=== PATIENT | male | born 1980 | race Caucasian/White ===

== ENCOUNTER 2021-12-04 00:09 | Emergency (ER) | payer OTHER, SELFPAY ==
[2021-12-04 00:13] VITALS: BP 108/60; PULSE 97; RESP 18; TEMP 37.3; O2SAT 99; BMI 24.4
--- NOTE | 2021-12-04 00:21 | ECG_ITS ---
[facility] Test Date: 2021-12-04 Pat Name: Diaz Segundo Department: Room: Gender: Male Emergency Department: : 1980 Requested By: Lizandro Munson Order Number: [id number] Ragsdale MD: Mikel Mccabe M.D. Measurements Intervals [place] Rate: 96 P: 28 PA: 178 QRS: 81 QRSD: 98 T: 71 QT: 359 QTc: 456 Interpretive Statements SINUS RHYTHM INCOMPLETE RIGHT BUNDLE BRANCH BLOCK [90+ ms QRS DURATION, TERMINAL R IN V1/V2, 40+ ms S IN I/aVL/V4/V5/V6] No previous ECG available for comparison Electronically Signed On 12-04-2021 8:08:15 CDT by Mikel Mccabe M.D. [id number]
--- NOTE | 2021-12-04 00:21 | XRR_ITS ---
PROCEDURE INFORMATION: Exam: XR Chest Exam date and time: 12/04/2021 12:45 AM Age: 41 years old Clinical indication: Other: Syncope; Additional info: Syncopal episode TECHNIQUE: Imaging protocol: Radiologic exam of the chest. Views: 1 view. COMPARISON: CT abdomen pelvis w con* [id number] 09/29/2018 9:47 AM FINDINGS: Lungs: Lungs are clear. Pleural spaces: There is no pleural effusion or pneumothorax. Heart/Mediastinum: Cardiomediastinal contours are unremarkable. Bones/joints: Bones are unremarkable. XR/XR chest 1V portable [id number] IMPRESSION: No acute findings.
[2021-12-04] MEDS: sodium chloride 0.9% 1,000 ML 999 ML IV (00:34)
[2021-12-04 00:38] LABS: Basophils % 0.3 %; Eosinophils % 0.1 %; Hematocrit 41.6 % (42.0-52.0); Lymphocytes # 0.7 10^3/uL (0.8-4.8); Lymphocytes % 5.1 %; Mean Corpuscular HGB Conc 33.7 g/dL (30.0-36.0); Mean Corpuscular Hemoglobin 30.4 pg (28.0-34.0); Mean Corpuscular Volume 90.4 fl (80-94); Mean Platelet Volume 8.8 fL (7.4-10.4); Monocytes # 1.2 10^3/uL (0.2-0.9); Monocytes % 8.6 %; Neutrophils # 11.63 10^3/uL (1.8-7.7); Neutrophils % 85.3 %; Nucleated Red Blood Cells % 0 %; Platelet Count 192 10^3/cmm (130-400); Red Cell Distribution Width 11.8 % (12.1-15.1); White Blood Count 13.6 10^3/uL (4.0-10.0)
--- NOTE | 2021-12-04 00:44 | W.ED.SYNCOPE ---
Documented by User: IVETTE Miller 12/04/21 14:13 HPI - Syncope General: Chief Complaint: Syncope Stated Complaint: Passed Out Time Seen by Provider: 12/04/21 00:20 History of Present Illness: Patient is a 41-year-old male that comes to the ED with upper respiratory symptoms and syncopal episode. Patient's upper respiratory symptoms of fever, chills, body aches and sore throat started this morning when he woke up. His symptoms have continued to progress. He says this is the worst sore throat he has ever had. It hurts for him to swallow. He says that it feels like there is something stuck in his throat. Denies getting any food stuck in throat or choking. Denies any known sick contacts. He is taken Tylenol and Motrin today to help with fever. His last dose of Tylenol was around 5 PM today. Approximately 1 hour ago patient had a syncopal episode. He was laying in bed and then got up and sat at edge of bed. He then says he passed out and woke up on the floor. Denies any headache, neck pain, chest pain or shortness of breath. He has not had any abdominal pain, nausea/vomiting, bladder or bowel symptoms. Associated symptoms: Reports fever(s); Deny abdominal pain, chest pain, headache(s) or nausea Review of Systems Const: Reports: fever(s), chills, body aches, fatigue and malaise Eyes: Denies: change in vision or eye discomfort ENMT: Reports: throat pain and odynophagia; Denies: nasal discharge or nasal congestion Card: Reports: syncope; Denies: chest pain, palpitations, edema, swelling of feet/ankles, dyspnea on exertion or orthopnea Resp: Denies: dyspnea, productive cough or non-productive cough GI: Denies: abdominal pain, nausea, vomiting, diarrhea, constipation or hematochezia : Denies: flank pain, difficulty urinating, dysuria or hematuria Musc: Denies: neck pain, back pain or extremity swelling Skin/Breast: Denies: rash or new lesions Neuro: Denies: headache(s), numbness in extremities or weakness in extremities PFS ED PFSH: Medical History No pertinent family history Surgical History No pertinent past surgical history Physical Exam Narrative: EXAM NARRATIVE: Patient appears in some discomfort and is having some trouble dealing with his oral secretions and is spitting them out. Const: COMMON NORMALS: patient oriented x3 and alert GENERAL APPEARANCE: cooperative HENMT: COMMON NORMALS: normocephalic HEAD & SCALP: normocephalic MOUTH: Normal oral and palatal mucosa present THROAT: uvula midline and posterior oropharynx abnormal edema and erythema Eye: COMMON NORMALS: Equal, round and reactive pupils present and conjunctivae normal CONJUNCTIVA: Yes conjunctivae normal PUPIL: Yes Equal, round and reactive pupils present Neck/C-Spine: COMMON NORMALS: supple GENERAL: Yes normal visual inspection Lymph: LYMPHATIC: lymphadenopathy bilateral anterior cervical multiple, soft and tender 1 cm Resp: COMMON NORMALS: normal respiratory effort, No retractions, No use of accessory muscles and clear to auscultation bilaterally AUSCULTATION: clear to auscultation bilaterally Cardio: COMMON NORMALS: regular rate, regular rhythm, S1 normal heart sound present, S2 normal heart sound present, No gallops present (Cardio), No clicks present (Cardio), No murmurs present (Cardio) and Peripheral pulses 2+ throughout RATE: regular rate RHYTHM: regular rhythm HEART SOUNDS: S1 normal heart sound present and S2 normal heart sound present PERIPHERAL PULSES: Peripheral pulses 2+ throughout GI: COMMON NORMALS: Normal to inspection, nondistended, normoactive bowel sounds present, Soft to palpation, non-tender and no masses PALPATION: Yes Soft to palpation : COMMON NORMALS: Yes no CVA tenderness BLADDER/KIDNEY EXAM: Yes no CVA tenderness Back/Pelvis: COMMON NORMALS: no CVA tenderness Extremity: COMMON NORMALS: normal to inspection Neuro: COMMON NORMALS: patient oriented x3 and moves all extremities SENSORIUM/ORIENTATION: Yes alert Skin: GENERAL SKIN EXAM: dry skin Course Vital Signs: Vital signs: Vital Signs Temperature 97.8 F 12/04/21 05:45 Pulse Rate 83 12/04/21 07:45 Respiratory Rate 16 12/04/21 07:45 Blood Pressure 101/58 12/04/21 07:45 Pulse Oximetry 95 12/04/21 07:45 MDM - Syncope Lab Data I reviewed the patient's lab results. : 12/04/21 00:27 12/04/21 00:27 Radiology Impressions Chest X-Ray 12/04/21 00:21 IMPRESSION: No acute findings. Head CT 12/04/21 00:45 IMPRESSION: No acute intracranial abnormality. Neck CT 12/04/21 02:24 IMPRESSION: Probable polyp on the posterior pharyngeal wall at about the level of the vocal folds causing mild airway narrowing and soft tissue thickening up the left parapharyngeal soft tissues to the soft palate. ADDENDUM: 12/04/21 0500 THIS REPORT CONTAINS FINDINGS THAT MAY BE CRITICAL TO PATIENT CARE. The findings were verbally communicated via telephone conference at 4:57 AM CDT on 12/04/[address] Fabrice Em. The findings were acknowledged and understood. Laboratory Results WBC 13.6 10^3/uL (4.0-10.0) H 12/04/21 00:27 RBC 4.60 10^6/uL (4.1-5.3) 12/04/21 00:27 Hgb 14.0 g/dL (11.7-16.6) 12/04/21 00:27 Hct 41.6 % (42.0-52.0) L 12/04/21 00:27 MCV 90.4 fl (80-94) 12/04/21 00:27 MCH 30.4 pg (28.0-34.0) 12/04/21 00: MCHC 33.7 g/dL (30.0-36.0) 12/04/21 00: RDW 11.8 % (12.1-15.1) L 12/04/21 00:27 Plt Count 192 10^3/cmm (130-400) 12/04/21 00:27 MPV 8.8 fL (7.4-10.4) 12/04/21 00:27 Neut % (Auto) 85.3 % 12/04/21 00:27 Lymph % (Auto) 5.1 % 12/04/21 00:27 Tucker % (Auto) 8.6 % 12/04/21 00:27 Eos % (Auto) 0.1 % 12/04/21 00:27 Baso % (Auto) 0.3 % 12/04/21 00:27 Neut # (Auto) 11.63 10^3/uL (1.8-7.7) H 12/04/21 00:27 Lymph # (Auto) 0.7 10^3/uL (0.8-4.8) L 12/04/21 00: Tucker # (Auto) 1.2 10^3/uL (0.2-0.9) H 12/04/21 00: Eos # (Auto) 0.0 10^3/uL (0.0-0.8) 12/04/21 00: Baso # (Auto) 0.0 10^3/uL (0.0-0.1) 12/04/21 00: Nucleated RBC % (auto) 0 % 12/04/21 Nucleated RBCs # 0.0 /100WBC 12/04/21: Sodium 142 mmol/L (136-145) 12/04/21 00: Potassium 3.5 mmol/L (3.5-5.1) 12/04/21 00: Chloride 106 mmol/L (98-107) 12/04/21: Carbon Dioxide 24 mmol/L (22-29) 12/04/21 00: Anion Gap 15.5 (5-19) 12/04/21 00: BUN 9 mg/dL (6-20) 12/04/21: Creatinine 0.8 mg/dL (0.7-1.2) 12/04/21 00: GFR Calculation 106.0 mL/min (90-130) 12/04/21 00: Glucose 134 mg/dL (65-115) H 12/04/21 00: Calculated Osmolality 295 mOsm/kg (285-295) 12/04/21: Calcium 9.0 mg/dL (8.5-10.5) 12/04/21 00: Total Bilirubin 1.8 mg/dL (0.15-1.2) H 12/04/21 00: AST 14 U/L (0-40) 12/04/21: ALT 14 U/L (0-41) 12/04/21: Alkaline Phosphatase 43 IU/L (40-130) 12/04/21 00: Troponin T Baseline 6 ng/L (0-15) 12/04/21: Troponin T 120 Minute 6.74 ng/L (0-15) 12/04/21 02:20 Delta Troponin T 0.74 ABS# (0-10) 12/04/21 02:20 Total Protein 6.7 g/dL (6.6-8.7) 12/04/21 00:27 Albumin 4.5 g/dL (3.5-5.2) 12/04/21 00:27 Globulin 2.2 g/dL (1.3-4.6) 12/04/21 00:27 Coronavirus 229E (PCR) Not detected (NOT DETECT) 12/04/21 00:51 Monoscreen Negative (Negative) 12/04/21 00:27 SARS-CoV-2 (PCR) Not detected (NOT DETECT) 12/04/21 00:51 Group A Strep Rapid Negative (Negative) 12/04/21 00:51 EKG Data EKG 1: EKG interpretation date: 12/04/21 Interpretation: Sinus rhythm, no ST segment elevation or depression seen. 96 bpm. Discharge Plan Discharge Patient Disposition: Home Clinical Impression: Pharyngeal mass Condition: Stable Prescriptions: New prednisone 20 mg tablet 20 mg PO TID Qty: 15 0RF Rx Instructions: 1 p.o. 3 times daily x3 days, 1 p.o. twice daily x2 days, 1 p.o. daily x2 days clindamycin HCl 300 mg capsule 300 mg PO QID 10 Days Qty: 40 0RF Discharge Orders: Discharge ED (Routine); Ordered 12/04/21 Ordered By: Keven Martinez Referrals: Yassine Barnes MD [Physician] - Patient Instructions: Opioid Safety Activity Restrictions/Additional Instructions: Case management make arrangements for you to see Dr. Barnes on Saturday, December 07. Sign Out Sign Out Data: Patient Sign Out occurred on 12/04/21 at 07:27. Patient's care was discussed, and care was transferred from to Keven Martinez DO. Coding Level of Care Code ED Wireline Supervisor for Chg Fwd Exam Comprehensive Documented by User: Fabricenayana Em DO 12/04/21 06:08 HPI - Syncope General: Chief Complaint: Syncope Stated Complaint: Passed Out Time Seen by Provider: 12/04/21 00:20 [facility] ED PFSH: Medical History No pertinent family history Surgical History No pertinent past surgical history Course Vital Signs: Vital signs: Vital Signs Temperature 97.8 F 12/04/21 05:45 Pulse Rate 83 12/04/21 07:45 Respiratory Rate 16 12/04/21 07:45 Blood Pressure 101/58 12/04/21 07:45 Pulse Oximetry 95 12/04/21 07:45 MDM - Syncope Medical Decision Making This patient was originally seen by Mr. Arpit PA-C.? I agree with his history, evaluation, and treatment. He originally came in because of a syncopal episode. He has recovered from this. His second complaint, though, was a feeling of a foreign object in his throat. He is having some pain, and mild difficulty swallowing. No shortness of breath. He is handling his own secretions fine at this point. He has not had this sensation before. He denied any choking episodes recently. He does have some upper respiratory symptoms. His white blood cell count is 13.6. His BMP is normal. Swabs for strep, COVID-19, and mono test were negative. CT of the head shows no acute intracranial abnormality related to syncope. Chest x-ray is normal. Troponin is 6.7 at baseline with a 0.7 delta. His EKG is nonacute. CT of the neck with contrast is performed, and shows a probable polyp on the posterior pharyngeal wall at about the level of the vocal cords causing some mild airway narrowing. I have reexamined the patient. He still having trouble swallowing. He was given IV Decadron which should begin to help. He will be covered with clindamycin, as he has a leukocytosis and a low-grade temperature. We have ENT available at 7 AM this morning. He has agreed to be held here, until we can consult with them for further evaluation. He is not stridulous at this point. There is no sign clinically of impending airway obstruction or decompensation. His symptoms are not worsening. Lab Data : 12/04/21 00:27 12/04/21 00:27 Radiology Impressions Chest X-Ray 12/04/21 00:21 IMPRESSION: No acute findings. Head CT 12/04/21 00:45 IMPRESSION: No acute intracranial abnormality. Neck CT 12/04/21 02:24 IMPRESSION: Probable polyp on the posterior pharyngeal wall at about the level of the vocal folds causing mild airway narrowing and soft tissue thickening up the left parapharyngeal soft tissues to the soft palate. ADDENDUM: 12/04/21 0500 THIS REPORT CONTAINS FINDINGS THAT MAY BE CRITICAL TO PATIENT CARE. The findings were verbally communicated via telephone conference at 4:57 AM CDT on 12/04/[address] Fabrice Em. The findings were acknowledged and understood. Laboratory Results WBC 13.6 10^3/uL (4.0-10.0) H 12/04/21 00:27 RBC 4.60 10^6/uL (4.1-5.3) 12/04/21 00:27 Hgb 14.0 g/dL (11.7-16.6) 12/04/21 00:27 Hct 41.6 % (42.0-52.0) L 12/04/21 00:27 MCV 90.4 fl (80-94) 12/04/21 00:27 MCH 30.4 pg (28.0-34.0) 12/04/21 00: MCHC 33.7 g/dL (30.0-36.0) 12/04/21 00: RDW 11.8 % (12.1-15.1) L 12/04/21 00:27 Plt Count 192 10^3/cmm (130-400) 12/04/21 00:27 MPV 8.8 fL (7.4-10.4) 12/04/21 00:27 Neut % (Auto) 85.3 % 12/04/21 00:27 Lymph % (Auto) 5.1 % 12/04/21 00:27 Tucker % (Auto) 8.6 % 12/04/21 00:27 Eos % (Auto) 0.1 % 12/04/21 00:27 Baso % (Auto) 0.3 % 12/04/21 00:27 Neut # (Auto) 11.63 10^3/uL (1.8-7.7) H 12/04/21 00:27 Lymph # (Auto) 0.7 10^3/uL (0.8-4.8) L 12/04/21 00:27 Tucker # (Auto) 1.2 10^3/uL (0.2-0.9) H 12/04/21 00:27 Eos # (Auto) 0.0 10^3/uL (0.0-0.8) 12/04/21 00: Baso # (Auto) 0.0 10^3/uL (0.0-0.1) 12/04/21 00: Nucleated RBC % (auto) 0 % 12/04/21 00: Nucleated RBCs # 0.0 /100WBC 12/04/21 00: Sodium 142 mmol/L (136-145) 12/04/21 00: Potassium 3.5 mmol/L (3.5-5.1) 12/04/21 00: Chloride 106 mmol/L (98-107) 12/04/21 00: Carbon Dioxide 24 mmol/L (22-29) 12/04/21 00: Anion Gap 15.5 (5-19) 12/04/21 00: BUN 9 mg/dL (6-20) 12/04/21 00: Creatinine 0.8 mg/dL (0.7-1.2) 12/04/21 00: GFR Calculation 106.0 mL/min (90-130) 12/04/21 00: Glucose 134 mg/dL (65-115) H 12/04/21 00: Calculated Osmolality 295 mOsm/kg (285-295) 12/04/21 00: Calcium 9.0 mg/dL (8.5-10.5) 12/04/21 00: Total Bilirubin 1.8 mg/dL (0.15-1.2) H 12/04/21 00: AST 14 U/L (0-40) 12/04/21 00: ALT 14 U/L (0-41) 12/04/21 00: Alkaline Phosphatase 43 IU/L (40-130) 12/04/21 00: Troponin T Baseline 6 ng/L (0-15) 12/04/21 00:27 Troponin T 120 Minute 6.74 ng/L (0-15) 12/04/21 02:20 Delta Troponin T 0.74 ABS# (0-10) 12/04/21 02:20 Total Protein 6.7 g/dL (6.6-8.7) 12/04/21 00:27 Albumin 4.5 g/dL (3.5-5.2) 12/04/21 00:27 Globulin 2.2 g/dL (1.3-4.6) 12/04/21 00:27 Coronavirus 229E (PCR) Not detected (NOT DETECT) 12/04/21 00:51 Monoscreen Negative (Negative) 12/04/21 00:27 SARS-CoV-2 (PCR) Not detected (NOT DETECT) 12/04/21 00:51 Group A Strep Rapid Negative (Negative) 12/04/21 00:51 Discharge Plan Discharge Patient Disposition: Home Clinical Impression: Pharyngeal mass Condition: Stable Prescriptions: New prednisone 20 mg tablet 20 mg PO TID Qty: 15 0RF Rx Instructions: 1 p.o. 3 times daily x3 days, 1 p.o. twice daily x2 days, 1 p.o. daily x2 days clindamycin HCl 300 mg capsule 300 mg PO QID 10 Days Qty: 40 0RF Discharge Orders: Discharge ED (Routine); Ordered 12/04/21 Ordered By: Keven Martinez Referrals: Yassine Barnes MD [Physician] - Patient Instructions: Opioid Safety Activity Restrictions/Additional Instructions: Case management make arrangements for you to see Dr. Barnes on Saturday, December 07. Sign Out Sign Out Data: Patient Sign Out occurred on 12/04/21 at 07:27. Patient's care was discussed, and care was transferred from to Keven Martinez DO. Coding Level of Care Code ED Wireline Supervisor for Chg Fwd Exam Comprehensive Documented by User: Keven Martinez DO 12/04/21 07:41 HPI - Syncope General: Chief Complaint: Syncope Stated Complaint: Passed Out Time Seen by Provider: 12/04/21 00:20 [facility] ED PFSH: Medical History No pertinent family history Surgical History No pertinent past surgical history Course Vital Signs: Vital signs: Vital Signs Temperature 97.8 F 12/04/21 05:45 Pulse Rate 83 12/04/21 07:45 Respiratory Rate 16 12/04/21 07:45 Blood Pressure 101/58 12/04/21 07:45 Pulse Oximetry 95 12/04/21 07:45 MDM - Syncope Medical Decision Making This patient was originally seen by Mr. Arpit PA-C.? I agree with his history, evaluation, and treatment. He originally came in because of a syncopal episode. He has recovered from this. His second complaint, though, was a feeling of a foreign object in his throat. He is having some pain, and mild difficulty swallowing. No shortness of breath. He is handling his own secretions fine at this point. He has not had this sensation before. He denied any choking episodes recently. He does have some upper respiratory symptoms. His white blood cell count is 13.6. His BMP is normal. Swabs for strep, COVID-19, and mono test were negative. CT of the head shows no acute intracranial abnormality related to syncope. Chest x-ray is normal. Troponin is 6.7 at baseline with a 0.7 delta. His EKG is nonacute. CT of the neck with contrast is performed, and shows a probable polyp on the posterior pharyngeal wall at about the level of the vocal cords causing some mild airway narrowing. I have reexamined the patient. He still having trouble swallowing. He was given IV Decadron which should begin to help. He will be covered with clindamycin, as he has a leukocytosis and a low-grade temperature. We have ENT available at 7 AM this morning. He has agreed to be held here, until we can consult with them for further evaluation. He is not stridulous at this point. There is no sign clinically of impending airway obstruction or decompensation. His symptoms are not worsening. Care assumed at change of shift. Patient remained stable as per Dr. Em's disc scription. I reviewed the CT with Dr. Munson. He will see the patient Saturday morning we will discharge him home on continued oral clindamycin and oral steroid taper. He is still able to swallow although he has some discomfort there. Has any worsening problem return. Discussed dietary restrictions stick to mostly liquid diet avoid thick breads meats. Return if has problems. Lab Data : 12/04/21 00:27 12/04/21 00:27 Radiology Impressions Chest X-Ray 12/04/21 00:21 IMPRESSION: No acute findings. Head CT 12/04/21 00:45 IMPRESSION: No acute intracranial abnormality. Neck CT 12/04/21 02:24 IMPRESSION: Probable polyp on the posterior pharyngeal wall at about the level of the vocal folds causing mild airway narrowing and soft tissue thickening up the left parapharyngeal soft tissues to the soft palate. ADDENDUM: 12/04/21 0500 THIS REPORT CONTAINS FINDINGS THAT MAY BE CRITICAL TO PATIENT CARE. The findings were verbally communicated via telephone conference at 4:57 AM CDT on 12/04/[address] Fabrice Em. The findings were acknowledged and understood. Laboratory Results WBC 13.6 10^3/uL (4.0-10.0) H 12/04/21: RBC 4.60 10^6/uL (4.1-5.3) 12/04/21: Hgb 14.0 g/dL (11.7-16.6) 12/04/21: Hct 41.6 % (42.0-52.0) L 12/04/21: MCV 90.4 fl (80-94) 12/04/21: MCH 30.4 pg (28.0-34.0) 12/04/21: MCHC 33.7 g/dL (30.0-36.0) 12/04/21: RDW 11.8 % (12.1-15.1) L 12/04/21: Plt Count 192 10^3/cmm (130-400) 12/04/21: MPV 8.8 fL (7.4-10.4) 12/04/21: Neut % (Auto) 85.3 % 12/04/21 00:27 Lymph % (Auto) 5.1 % 12/04/21 00:27 Tucker % (Auto) 8.6 % 12/04/21 00: Eos % (Auto) 0.1 % 12/04/21 00: Baso % (Auto) 0.3 % 12/04/21 00:27 Neut # (Auto) 11.63 10^3/uL (1.8-7.7) H 12/04/21 00:27 Lymph # (Auto) 0.7 10^3/uL (0.8-4.8) L 12/04/21 00:27 Tucker # (Auto) 1.2 10^3/uL (0.2-0.9) H 12/04/21 00: Eos # (Auto) 0.0 10^3/uL (0.0-0.8) 12/04/21 00: Baso # (Auto) 0.0 10^3/uL (0.0-0.1) 12/04/21 00: Nucleated RBC % (auto) 0 % 12/04/21 00: Nucleated RBCs # 0.0 /100WBC 12/04/21 00: Sodium 142 mmol/L (136-145) 12/04/21 00: Potassium 3.5 mmol/L (3.5-5.1) 12/04/21 00: Chloride 106 mmol/L (98-107) 12/04/21 00: Carbon Dioxide 24 mmol/L (22-29) 12/04/21 00: Anion Gap 15.5 (5-19) 12/04/21 00: BUN 9 mg/dL (6-20) 12/04/21 00: Creatinine 0.8 mg/dL (0.7-1.2) 12/04/21 00: GFR Calculation 106.0 mL/min (90-130) 12/04/21 00: Glucose 134 mg/dL (65-115) H 12/04/21 00: Calculated Osmolality 295 mOsm/kg (285-295) 12/04/21 00: Calcium 9.0 mg/dL (8.5-10.5) 12/04/21 00: Total Bilirubin 1.8 mg/dL (0.15-1.2) H 12/04/21 00:27 AST 14 U/L (0-40) 12/04/21 00:27 ALT 14 U/L (0-41) 12/04/21 00:27 Alkaline Phosphatase 43 IU/L (40-130) 12/04/21 00:27 Troponin T Baseline 6 ng/L (0-15) 12/04/21 00:27 Troponin T 120 Minute 6.74 ng/L (0-15) 12/04/21 02:20 Delta Troponin T 0.74 ABS# (0-10) 12/04/21 02:20 Total Protein 6.7 g/dL (6.6-8.7) 12/04/21 00:27 Albumin 4.5 g/dL (3.5-5.2) 12/04/21 00:27 Globulin 2.2 g/dL (1.3-4.6) 12/04/21 00:27 Coronavirus 229E (PCR) Not detected (NOT DETECT) 12/04/21 00:51 Monoscreen Negative (Negative) 12/04/21 00:27 SARS-CoV-2 (PCR) Not detected (NOT DETECT) 12/04/21 00:51 Group A Strep Rapid Negative (Negative) 12/04/21 00:51 Discharge Plan Discharge Patient Disposition: Home Clinical Impression: Pharyngeal mass Condition: Stable Prescriptions: New prednisone 20 mg tablet 20 mg PO TID Qty: 15 0RF Rx Instructions: 1 p.o. 3 times daily x3 days, 1 p.o. twice daily x2 days, 1 p.o. daily x2 days clindamycin HCl 300 mg capsule 300 mg PO QID 10 Days Qty: 40 0RF Discharge Orders: Discharge ED (Routine); Ordered 12/04/21 Ordered By: Keven Martinez Referrals: Yassine Barnes MD [Physician] - Patient Instructions: Opioid Safety Activity Restrictions/Additional Instructions: Case management make arrangements for you to see Dr. Barnes on December 07. Sign Out Sign Out Data: Patient Sign Out occurred on 12/04/21 at 07:27. Patient's care was discussed, and care was transferred from to Keven Martinez DO. Coding Level of Care Code ED Wireline Supervisor for Chg Fwd Exam Comprehensive
--- NOTE | 2021-12-04 00:45 | CTR_ITS ---
PROCEDURE INFORMATION: Exam: CT Head Without Contrast Exam date and time: 12/04/2021 1:46 AM Age: 41 years old Clinical indication: Fever and syncope and collapse; Additional info: Syncopal episode fell and hit head TECHNIQUE: Imaging protocol: Computed tomography of the head without contrast. Radiation optimization: All CT scans at this facility use at least one of these dose optimization techniques: automated exposure control; mA and/or kV adjustment per patient size (includes targeted exams where dose is matched to clinical indication); or iterative reconstruction. COMPARISON: No relevant prior studies available. RADIATION DOSE METRICS: Total DLP (mGy-cm): 1169.38 FINDINGS: Brain: The brain is unremarkable. There is no mass effect or significant white matter disease. There is no acute intracranial hemorrhage. Cerebral ventricles: There is no significant ventricular dilation. The basal cisterns are unremarkable. Paranasal sinuses: There is mucosal thickening in the ethmoid air cells. No air-fluid levels in the paranasal sinuses. Mastoid air cells: The mastoid air cells are clear. Bones/joints: The calvarium is intact. Soft tissues: The visible extracranial soft tissues are unremarkable. CT/CT head wo con* [id number] IMPRESSION: No acute intracranial abnormality.
[2021-12-04 00:58] LABS: Alanine Aminotransferase 14 U/L (0-41); Albumin Level 4.5 g/dL (3.5-5.2); Alkaline Phosphatase 43 IU/L (40-130); Anion Gap 15.5 (5-19); Aspartate Amino Transferase 14 U/L (0-40); Blood Urea Nitrogen 9 mg/dL (6-20); Carbon Dioxide 24 mmol/L (22-29); Chloride 106 mmol/L (98-107); Globulin 2.2 g/dL (1.3-4.6); Glucose 134 mg/dL (65-115); Osmolality Calculated 295 mOsm/kg (285-295); Potassium 3.5 mmol/L (3.5-5.1); Sodium 142 mmol/L (136-145); Total Bilirubin 1.8 mg/dL (0.15-1.2); Total Protein 6.7 g/dL (6.6-8.7)
[2021-12-04 01:01] LABS: Monoscreen Negative (Negative)
[2021-12-04 01:02] LABS: Rapid Strep A Test Negative (Negative)
[2021-12-04 01:09] LABS: Troponin(5th) Baseline 6 ng/L (0-15)
[2021-12-04 01:38] VITALS: BP 117/64; PULSE 96; RESP 18; O2SAT 98
[2021-12-04] MEDS: ketorolac 30 mg/mL INJ IVP (01:43)
[2021-12-04] MEDS: dexamethasone 10 mg/mL INJ IVP (02:03)
--- NOTE | 2021-12-04 02:24 | CTR_ITS ---
PROCEDURE INFORMATION: Exam: CT Neck With Contrast Exam date and time: 12/04/2021 3:51 AM Age: 41 years old Clinical indication: Painful swallowing; Additional info: Throat pain, trouble swallowing, multiple enlarged lymph nodes on anterior aspect of neck and TECHNIQUE: Imaging protocol: Computed tomography of the neck with contrast. Radiation optimization: All CT scans at this facility use at least one of these dose optimization techniques: automated exposure control; mA and/or kV adjustment per patient size (includes targeted exams where dose is matched to clinical indication); or iterative reconstruction. Contrast material: OMNI 350; Contrast volume: 90 ml; Contrast route: INTRAVENOUS (IV); COMPARISON: CT head wo con* [id number] 12/04/2021 1:46 AM RADIATION DOSE METRICS: Total DLP (mGy-cm): 327.21 FINDINGS: Pharynx: There is moderate swelling along the left parapharyngeal soft tissues from the tonsil to the vocal folds with effacement of the piriform sinus. There is also a 1.6 cm rounded low density mass along the posterior pharyngeal wall at the level of the vocal folds suspicious for a polyp. Larynx: Unremarkable. Epiglottis is normal. Prevertebral and retropharyngeal spaces: Unremarkable. Salivary glands: Normal. Glands are normal in size. Thyroid: Normal. No enlarged or calcified nodules. Lymph nodes: Scattered level 2 and level 3 lymph nodes, measuring up to 2.6 cm on the left. Trachea: There is mild airway narrowing. Lungs: Unremarkable as visualized. Bones/joints: Unremarkable. No acute fracture. Soft tissues: Unremarkable. No significant soft tissue swelling. CT/CT neck w con* [id number] IMPRESSION: Probable polyp on the posterior pharyngeal wall at about the level of the vocal folds causing mild airway narrowing and soft tissue thickening up the left parapharyngeal soft tissues to the soft palate.
[2021-12-04 02:39] LABS: Adenovirus Not Detected (NOT DETECT); Chlamydia Pneumoniae Not Detected (NOT DETECT); Coronavirus 229E,HKU1,NL63,OC4 Not Detected (NOT DETECT); Human Metapneumovirus Not Detected (NOT DETECT); Human Rhinovirus/Enterovirus Not Detected (NOT DETECT); Influenza A Not Detected (NOT DETECT); Influenza A H1 Not Detected (NOT DETECT); Influenza A H1-2009 Not Detected (NOT DETECT); Influenza A H3 Not Detected (NOT DETECT); Influenza B Not Detected (NOT DETECT); Mycoplasma Pneumoniae Not Detected (NOT DETECT); Parainfluenza Virus Type 1 Not Detected (NOT DETECT); Parainfluenza Virus Type 2 Not Detected (NOT DETECT); Parainfluenza Virus Type 3 Not Detected (NOT DETECT); Parainfluenza Virus Type 4 Not Detected (NOT DETECT); Respiratory Syncytial Virus A Not Detected (NOT DETECT); Respiratory Syncytial Virus B Not Detected (NOT DETECT); SARS-COV-2 Not Detected (NOT DETECT)
[2021-12-04 02:45] LABS: Troponin 5 2HR 6.74 ng/L (0-15)
[2021-12-04 03:01] LABS: Troponin 5 2HR Delta 0.74 ABS# (0-10)
[2021-12-04] MEDS: iohexol 300 mg/mL 100 mL Btl IV (04:11)
[2021-12-04] MEDS: lidocaine 2% viscous 15 ML, aluminum-mag hydrox-simethicon 30 ML, sucralfate oral liq 1 GM PO (05:13)
[2021-12-04] MEDS: clindamycin 900 MG/50 ML PREMIX 100 MG IV (05:17)
[2021-12-04 05:45] VITALS: BP 97/60; PULSE 78; RESP 16; TEMP 36.6; O2SAT 95
[2021-12-04 07:20] VITALS: BP 96/55; RESP 18; O2SAT 96
[2021-12-04 07:45] VITALS: BP 101/58; PULSE 83; RESP 16; O2SAT 95
--- NOTE | 2021-12-04 14:41 | DCPLANNER ---
Addendum entered by Mercedes Jones 12/13/21 10:13: Patient had an appointment with Dr. Barnes, ENT - patient did attend appointment. Original Note: publishing manager had message to schedule a follow up appointment for patient with ENT, Dr. Barnes. publishing manager faxed patients information to the office of Dr. Barnes. Clinic will review patients information and will call patient with appointment information.
== END 2021-12-04 07:47 | disposition home or self-care (01) ==
PROVIDERS: Physician Assistant; Emergency Provider Family Medicine
DX: J39.2 Other diseases of pharynx (principal)
CPT/HCPCS: 70450; 70491; 71045; 80053; 84484; 85025; 86308; 87081; 87635; 87880; 93005; 96374; 96375; 99285; J1100; J1885; J3490; J7030; Q9967

== ENCOUNTER 2021-12-17 01:02 | Emergency (ER) | payer OTHER, SELFPAY ==
[2021-12-17 01:02] VITALS: BP 132/70; PULSE 102; RESP 18; TEMP 36.6; O2SAT 94; BMI 24.4
--- NOTE | 2021-12-17 01:56 | XRR_ITS ---
PROCEDURE INFORMATION: Exam: XR Chest Exam date and time: 12/17/2021 2:37 AM Age: 41 years old Clinical indication: Other: Syncope TECHNIQUE: Imaging protocol: Radiologic exam of the chest. Views: 1 view. COMPARISON: CR (CHEST, ) 12/04/2021 12:45 AM FINDINGS: Lungs: There is a background of emphysema mild pulmonary fibrosis. There are increased interstitial opacities present lung bases bilaterally and mild increased peribronchial markings, findings could represent a superimposed bilateral bronchitis and bilateral basilar interstitial pneumonitis. Pleural spaces: Unremarkable. No pleural effusion. No pneumothorax. Heart/Mediastinum: Unremarkable. No cardiomegaly. Bones/joints: Unremarkable. XR/XR chest 1V portable [id number] IMPRESSION: 1. Background of emphysema and pulmonary fibrosis. 2. Mildly increased peribronchial markings and increased interstitial opacities in the lung bases may represent bilateral bronchitis and basilar pneumonitis.
--- NOTE | 2021-12-17 01:56 | CTR_ITS ---
PROCEDURE INFORMATION: Exam: CT Head Without Contrast Exam date and time: 12/17/2021 2:09 AM Age: 41 years old Clinical indication: Syncope and collapse; Additional info: Near syncope TECHNIQUE: Imaging protocol: Computed tomography of the head without contrast. Radiation optimization: All CT scans at this facility use at least one of these dose optimization techniques: automated exposure control; mA and/or kV adjustment per patient size (includes targeted exams where dose is matched to clinical indication); or iterative reconstruction. COMPARISON: CT head wo con* [id number] 12/04/2021 1:46 AM RADIATION DOSE METRICS: Total DLP (mGy-cm): 2858.08 FINDINGS: Brain: There are patchy areas of hypoattenuation seen in the deep white matter of the cerebral hemispheres bilaterally mild deep white matter microvascular disease. Cerebral ventricles: No ventriculomegaly. Paranasal sinuses: Visualized sinuses are unremarkable. No fluid levels. Mastoid air cells: Visualized mastoid air cells are well aerated. Bones/joints: Unremarkable. No acute fracture. Soft tissues: Unremarkable. CT/CT head wo con* [id number] IMPRESSION: There are no acute intracranial findings. Stable head CT compared with 12/04/2021.
--- NOTE | 2021-12-17 01:57 | ECG_ITS ---
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 Measurements Intervals [place] Rate: 96 P: [place]: QRS: 83 QRSD: 101 T: 69 QT: 345 QTc: 436 Interpretive Statements Sinus rhythm ABNORMAL RHYTHM ECG Compared to ECG 12/04/2021 02:03:58 Incomplete right bundle-branch block no longer present Electronically Signed On 12-17-2021 10:36:48 CDT by Bartolome Ellison M.D. [id number]
[2021-12-17 02:18] LABS: Basophils % 0.4 %; Eosinophils # 0.1 10^3/uL (0.0-0.8); Eosinophils % 1.2 %; Hematocrit 39.6 % (42.0-52.0); Hemoglobin 13.1 g/dL (11.7-16.6); Lymphocytes # 3.5 10^3/uL (0.8-4.8); Lymphocytes % 38.9 %; Mean Corpuscular HGB Conc 33.1 g/dL (30.0-36.0); Mean Corpuscular Hemoglobin 30.5 pg (28.0-34.0); Mean Corpuscular Volume 92.3 fl (80-94); Mean Platelet Volume 8.7 fL (7.4-10.4); Monocytes # 0.7 10^3/uL (0.2-0.9); Monocytes % 7.5 %; Neutrophils # 4.57 10^3/uL (1.8-7.7); Neutrophils % 51.4 %; Nucleated Red Blood Cells % 0 %; Platelet Count 366 10^3/cmm (130-400); Red Blood Count 4.29 10^6/uL (4.1-5.3); Red Cell Distribution Width 12.1 % (12.1-15.1); White Blood Count 8.9 10^3/uL (4.0-10.0)
[2021-12-17] MEDS: midazolam 1 mg/mL INJ 2 mL 2 MG IVP (02:25)
[2021-12-17] MEDS: sodium chloride 0.9% 1,000 ML 999 ML IV (02:25)
[2021-12-17 02:27] LABS: Alanine Aminotransferase 10 U/L (0-41); Albumin Level 4.4 g/dL (3.5-5.2); Alkaline Phosphatase 59 IU/L (40-130); Anion Gap 13.8 (5-19); Aspartate Amino Transferase 11 U/L (0-40); Blood Urea Nitrogen 17 mg/dL (6-20); Carbon Dioxide 29 mmol/L (22-29); Chloride 105 mmol/L (98-107); Creatine Phosphokinase 80 U/L (39-308); Glomerular Filtration Rate 92.5 mL/min (90-130); Glucose 102 mg/dL (65-115); Magnesium 2.2 mg/dL (1.7-2.3); Osmolality Calculated 300 mOsm/kg (285-295); Phosphorus 3.5 mg/dL (2.5-4.5); Potassium 3.8 mmol/L (3.5-5.1); Sodium 144 mmol/L (136-145); Total Bilirubin 0.6 mg/dL (0.15-1.2); Total Protein 6.4 g/dL (6.6-8.7)
[2021-12-17 02:28] LABS: Troponin(5th) Baseline 8 ng/L (0-15)
[2021-12-17 02:33] LABS: Procalcitonin 0.03 ng/mL (0-0.5)
[2021-12-17 02:34] VITALS: BP 118/69; PULSE 93; RESP 16; O2SAT 95
[2021-12-17 02:53] LABS: Lactate (Lactic Acid level) 0.7 mmol/L (0.5-2.2)
--- NOTE | 2021-12-17 03:11 | ECG_ITS ---
[facility] Test Date: 2021-12-17 Pat Name: Diaz Segundo Department: Room: Gender: Male Expediter: : 1980 Requested By: Fabrice Bone Order Number: [id number] Melyssa MD: Bartolome Ellison M.D. Measurements Intervals [place] Rate: 82 P: 20 MT: 160 QRS: 86 QRSD: 98 T: 77 QT: 384 QTc: 449 Interpretive Statements SINUS RHYTHM Compared to ECG 12/17/2021 02:27:53 No change Electronically Signed On 12-17-2021 10:39:15 CDT by Bartolome Ellison M.D. [email or web address]/[id number]
--- NOTE | 2021-12-17 03:11 | CTR_ITS ---
PROCEDURE INFORMATION: Exam: CTA Chest With Contrast Exam date and time: 12/17/2021 3:44 AM Age: 41 years old Clinical indication: Abdominal pain; Generalized; Chest wall pain; Additional info: Chest discomfort, abdominal discomfort, syncope TECHNIQUE: Imaging protocol: Computed tomographic angiography of the chest with contrast. 3D rendering (Not supervised by radiologist): MIP and/or 3D reconstructed images were created by the technologist. Radiation optimization: All CT scans at this facility use at least one of these dose optimization techniques: automated exposure control; mA and/or kV adjustment per patient size (includes targeted exams where dose is matched to clinical indication); or iterative reconstruction. Contrast material: OMNIPAQUE; Contrast volume: 90 ml; Contrast route: INTRAVENOUS (IV); COMPARISON: CR (CHEST, ) 12/17/2021 2:37 AM RADIATION DOSE METRICS: Total DLP (mGy-cm): 1243.17 FINDINGS: Pulmonary arteries: There is mild bronchial wall thickening and prominence of the pulmonary vasculature seen in lower hemithoraces, findings that could represent mild pulmonary edema. Aorta: Unremarkable. No aortic aneurysm. No aortic dissection. Lungs: Hazy opacities are present the dependent portion lungs likely representing dependent atelectasis. Pleural spaces: Unremarkable. No pneumothorax. No pleural effusion. Heart: Unremarkable. No cardiomegaly. No pericardial effusion. Lymph nodes: Unremarkable. No enlarged lymph nodes. Bones/joints: Unremarkable. No acute fracture. Soft tissues: Unremarkable. PROCEDURE INFORMATION: Exam: CT Abdomen And Pelvis With Contrast Exam date and time: 12/17/2021 3:44 AM Age: 41 years old Clinical indication: Abdominal pain; Generalized; Chest wall pain; Additional info: Chest discomfort, abdominal discomfort, syncope TECHNIQUE: Imaging protocol: Computed tomography of the abdomen and pelvis with contrast. Radiation optimization: All CT scans at this facility use at least one of these dose optimization techniques: automated exposure control; mA and/or kV adjustment per patient size (includes targeted exams where dose is matched to clinical indication); or iterative reconstruction. Contrast material: 90ML OMNIPAQUE 350; Contrast volume: 90 ml; Contrast route: INTRAVENOUS (IV); COMPARISON: CT abdomen pelvis w con* [id number] 09/29/2018 9:47 AM RADIATION DOSE METRICS: Total DLP (mGy-cm): 1243.17 FINDINGS: Liver: Normal. No mass. Gallbladder and bile ducts: The gallbladder is contracted. Pancreas: Normal. No ductal dilation. Spleen: Normal. No splenomegaly. Adrenal glands: Normal. No mass. Kidneys and ureters: A benign hypoattenuation cystic lesions seen within the right kidney measuring 9.7 mm. Stomach and bowel: Unremarkable. No obstruction. No mucosal thickening. Appendix: The appendix is visualized and is normal in configuration. Intraperitoneal space: Unremarkable. No free air. No significant fluid collection. Vasculature: Unremarkable. No abdominal aortic aneurysm. Lymph nodes: Unremarkable. No enlarged lymph nodes. Urinary bladder: Unremarkable as visualized. Reproductive: Unremarkable as visualized. Bones/joints: Unremarkable. No acute fracture. Soft tissues: There is a small umbilical hernia present containing fat. CT/CT angio chest w abd pel w con IMPRESSION: 1. Mild wall thickening and mild prominence of the pulmonary vasculature in the lower hemithoraces could represent mild pulmonary edema. 2. Hazy opacities in the dependent portion of the lungs compatible with dependent atelectasis. 3. There is no evidence for pulmonary emboli. IMPRESSION: 1. Contracted gallbladder 2. Small umbilical hernia containing fat 3. Normal appendix 4. No evidence for ureteral obstruction 5. Benign right renal cyst measuring 9.7 mm. No further workup needed. COMMENTS: Consistent with the [employer]'s Incidental Findings Committee white paper (J Am Ki Radiol 2018): Any incidental renal lesion less than 1 cm or classified as too small to characterize, or any incidental cystic renal lesion characterized as simple-appearing, is likely benign. No follow-up imaging is recommended for these lesions per consensus recommendations based on imaging criteria.
[2021-12-17 03:34] LABS: Add Urine Microscopic? NO; Charge for UA Resulting for Rev
[2021-12-17 03:39] LABS: Troponin 5 2HR 8.57 ng/L (0-15)
[2021-12-17 03:40] LABS: Troponin 5 2HR Delta 0.57 ABS# (0-10)
[2021-12-17 03:41] LABS: Bilirubin Urine Neg (Negative); Blood Urine Neg (Negative); Glucose Urine UA Norm (Normal); Ketones Urine Negative (Negative); Leukocyte Esterase Urine Negative (Negative); Nitrate Urine Negative (Negative); Protein Urine Neg (Negative); Specific Gravity, Urine 1.015 (1.005-1.030); Sulfosalicylic Acid Urine Negative (Negative); Urine Appearance Clear (CLEAR); Urine Color Yellow (Yellow); Urobilinogen Urine Neg (Negative); pH Urine 8 (5-7)
--- NOTE | 2021-12-17 04:01 | ED_ITS ---
HPI - General Adult General: Chief complaint: General Medical Stated complaint: muscle spasm Time Seen by Provider: 12/17/21 01:23 History of Present Illness: 41-year-old male with a recent diagnosis of pharyngeal infection with polyp here. He was placed on steroids and antibiotics and followed up with ENT. Polyp was inspected there, but not removed. Patient notes that he stopped his antibiotics and steroids, because they were making his stomach quite upset. He presents this morning with multiple complaints over the past 10 days or so. These include a raw sensation in his chest or when he swallows. He relates this to his esophagus. He states that he gets short of breath and has some chest discomfort with any activity which is not normal for him. He has had fevers on and off with chills and body aches. He has had a decreased appetite. He has had episodes of presyncope or nearly passing out. He has also been shaking, which seems to happen on and off as well. These shaking episodes were accompanied by muscle spasms. Not necessarily mental status changes or de creased responsiveness. Onset (ago): hour(s) Radiation: non-radiation Severity: moderate Quality: aching Pain Consistency: constant Relieving factors: none Exacerbating factors: none Associated symptoms: Reports chest pain, decreased appetite, dyspnea, fevers/chills, headache(s), malaise, nausea, short of breath and syncope; Deny confusion, cough, rash, seizures or vomiting Review of Systems Const: Reports: malaise ENMT: Reports: throat pain Card: Reports: chest pain and syncope Resp: Reports: dyspnea GI: Reports: nausea; Denies: vomiting Skin/Breast: Denies: rash Neuro: Reports: headache(s); Denies: confusion PFSH ED PFSH: Medical History No pertinent family history Surgical History No pertinent past surgical history Physical Exam Const: GENERAL APPEARANCE: cooperative, well kempt and ill appearing NUTRITIONAL APPEARANCE: thin ORIENTATION/CONSCIOUSNESS: Yes awake, Yes oriented to person, Yes oriented to place and Yes oriented to time HENMT: COMMON NORMALS: normocephalic, atraumatic and Normal external nose present HEAD & SCALP: normocephalic and atraumatic FACE & SINUS: normal facial exam NOSE: Normal external nose present THROAT: posterior oropharynx normal Eye: COMMON NORMALS: Equal, round and reactive pupils present and EOMs intact bilaterally PUPIL: Yes Equal, round and reactive pupils present Neck/C-Spine: GENERAL: Yes trachea midline Chest: CHEST: Yes Symmetrical chest wall rise Resp: COMMON NORMALS: normal respiratory effort, No use of accessory muscles and clear to auscultation bilaterally AUSCULTATION: clear to auscultation bilaterally Cardio: COMMON NORMALS: regular rate and regular rhythm RATE: regular rate RHYTHM: regular rhythm GI: COMMON NORMALS: Normal to inspection, nondistended, normoactive bowel sounds present, Soft to palpation and non-tender PALPATION: Yes Soft to palpation : COMMON NORMALS: Yes no CVA tenderness BLADDER/KIDNEY EXAM: Yes no CVA tenderness Back/Pelvis: COMMON NORMALS: no CVA tenderness Extremity: COMMON NORMALS: no pedal edema Neuro: SENSORIUM/ORIENTATION: Yes oriented to person, Yes oriented to place and Yes oriented to time Psych: APPEARANCE: Yes well kempt Course Vital Signs: Vital signs: Vital Signs Temperature 97.8 F 12/17/21 01:02 Pulse Rate 68 12/17/21 05:54 Respiratory Rate 13 12/17/21 05:54 Blood Pressure 100/51 12/17/21 05:54 Pulse Oximetry 94 12/17/21 05:54 [facility] - General Adult Medical Decision Making CBC is normal. BMP is normal. Inflammatory markers are nonelevated. Heart r ate has come down from 100-76. Tremor/shaking is resolved following midazolam administration. Head CT is stable compared to 12/04. CTA of the chest is performed due to slightly elevated D-dimer, with tachycardia. It shows very mild wall thickening and mild prominence of pulmonary vasculature and some atelectasis. No PE. No consolidation. CT of the belly was performed and is essentially negative. Magnesium and phosphorus are normal. Urinalysis is normal. COVID-19 PCR is negative. Troponin is negative and did not rise at 2 hours. EKG shows a sinus rhythm with normal axis and intervals, rate of 80, no ST changes. The cause of near syncope, shaking episodes, shortness of breath with exertion are not found in the ER this morning. Further work-up should continue as an outpatient. Possibility exists for seizure, although this is an atypical presentation, more rare would be metastasis to the brain from possible laryngeal cancer, although on inspection this appeared to be more of a benign polyp. Patient may need EEG study and MRI as an outpatient. Will refer to neurology. Lab Data : 12/17/21 01:16 12/17/21 01:16 Radiology Impressions Chest X-Ray 12/17/21 01:56 IMPRESSION: 1. Background of emphysema and pulmonary fibrosis. 2. Mildly increased peribronchial markings and increased interstitial opacities in the lung bases may represent bilateral bronchitis and basilar pneumonitis. Head CT 12/17/21 01:56 IMPRESSION: There are no acute intracranial findings. Stable head CT compared with 12/04/2021. Chest/Abdomen/Pelvis CT 12/17/21 03:11 IMPRESSION: 1. Mild wall thickening and mild prominence of the pulmonary vasculature in the lower hemithoraces could represent mild pulmonary edema. 2. Hazy opacities in the dependent portion of the lungs compatible with dependent atelectasis. 3. There is no evidence for pulmonary emboli. IMPRESSION: 1. Contracted gallbladder 2. Small umbilical hernia containing fat 3. Normal appendix 4. No evidence for ureteral obstruction 5. Benign right renal cyst measuring 9.7 mm. No further workup needed. COMMENTS: Consistent with the [employer]'s Incidental Findings Committee white paper (J Am Ki Radiol 2018): Any incidental renal lesion less than 1 cm or classified as too small to characterize, or any incidental cystic renal lesion characterized as simple-appearing, is likely benign. No follow-up imaging is recommended for these lesions per consensus recommendations based on imaging criteria. Laboratory Results WBC 8.9 10^3/uL (4.0-10.0) 12/17/21 01:16 RBC 4.29 10^6/uL (4.1-5.3) 12/17/21 01:16 Hgb 13.1 g/dL (11.7-16.6) 12/17/21 01:16 Hct 39.6 % (42.0-52.0) L 12/17/21 01:16 MCV 92.3 fl (80-94) 12/17/21 01:16 MCH 30.5 pg (28.0-34.0) 12/17/21 01:16 MCHC 33.1 g/dL (30.0-36.0) 12/17/21 01:16 RDW 12.1 % (12.1-15.1) 12/17/21 01:16 Plt Count 366 10^3/cmm (130-400) 12/17/21 01:16 MPV 8.7 fL (7.4-10.4) 12/17/21 01:16 Neut % (Auto) 51.4 % 12/17/21 01:16 Lymph % (Auto) 38.9 % 12/17/21 01:16 [place] % (Auto) 7.5 % 12/17/21 01:16 Eos % (Auto) 1.2 % 12/17/21 01:16 Baso % (Auto) 0.4 % 12/17/21 01:16 Neut # (Auto) 4.57 10^3/uL (1.8-7.7) 12/17/21 01:16 Lymph # (Auto) 3.5 10^3/uL (0.8-4.8) 12/17/21 01:16 [place] # (Auto) 0.7 10^3/uL (0.2-0.9) 12/17/21 01:16 Eos # (Auto) 0.1 10^3/uL (0.0-0.8) 12/17/21 01:16 Baso # (Auto) 0.0 10^3/uL (0.0-0.1) 12/17/21 01:16 Nucleated RBC % (auto) 0 % 12/17/21 01:16 Nucleated RBCs # 0.0 /100WBC 12/17/21 01:16 D-Dimer 0.60 ug/mIFEU (0-0.59) H 12/17/21 01:16 Sodium 144 mmol/L (136-145) 12/17/21 01:16 Potassium 3.8 mmol/L (3.5-5.1) 12/17/21 01:16 Chloride 105 mmol/L (98-107) 12/17/21 01:16 Carbon Dioxide 29 mmol/L (22-29) 12/17/21 01:16 Anion Gap 13.8 (5-19) 12/17/21 01:16 BUN 17 mg/dL (6-20) 12/17/21 01:16 Creatinine 0.9 mg/dL (0.7-1.2) 12/17/21 01:16 GFR Calculation 92.5 mL/min (90-130) 12/17/21 01:16 Glucose 102 mg/dL (65-115) 12/17/21 01:16 Calculated Osmolality 300 mOsm/kg (285-295) H 12/17/21 01:16 Lactate 0.7 mmol/L (0.5-2.2) 12/17/21 02:22 Calcium 9.0 mg/dL (8.5-10.5) 12/17/21 01:16 Phosphorus 3.5 mg/dL (2.5-4.5) 12/17/21 01:16 Magnesium 2.2 mg/dL (1.7-2.3) 12/17/21 01:16 Total Bilirubin 0.6 mg/dL (0.15-1.2) 12/17/21 01:16 AST 11 U/L (0-40) 12/17/21 01:16 ALT 10 U/L (0-41) 12/17/21 01:16 Alkaline Phosphatase 59 IU/L (40-130) 12/17/21 01:16 Creatine Kinase 80 U/L (39-308) 12/17/21 01:16 Troponin T Baseline 8 ng/L (0-15) 12/17/21 01:16 Troponin T 120 Minute 8.57 ng/L (0-15) 12/17/21 03:08 Delta Troponin T 0.57 ABS# (0-10) 12/17/21 03:08 C-Reactive Protein 3.0 mg/L (0.0-4.9) 12/17/21 01:16 Total Protein 6.4 g/dL (6.6-8.7) L 12/17/21 01:16 Albumin 4.4 g/dL (3.5-5.2) 12/17/21 01:16 Globulin 2.0 g/dL (1.3-4.6) 12/17/21 01:16 Procalcitonin 0.03 ng/mL (0-0.5) 12/17/21 01:16 Urine Color Yellow (Yellow) 12/17/21 03:25 Urine Appearance Clear (CLEAR) 12/17/21 03:25 Urine pH 8 (5-7) H 12/17/21 03:25 Ur Specific [place] 1.015 (1.005-1.030) 12/17/21 03:25 Urine Protein Neg (Negative) 12/17/21 03:25 Urine Glucose (UA) Norm (Normal) 12/17/21 03:25 Urine Ketones Negative (Negative) 12/17/21 03:25 Urine Blood Neg (Negative) 12/17/21 03:25 Urine Nitrate Negative (Negative) 12/17/21 03:25 Urine Bilirubin Neg (Negative) 12/17/21 03:25 Prot Sulfosalicylic Acd Negative (Negative) 12/17/21 03:25 Urine Urobilinogen Neg mg/dL (Negative) 12/17/21 03:25 Ur Leukocyte Esterase Negative (Negative) 12/17/21 03:25 Coronavirus 229E (PCR) Not detected (NOT DETECT) 12/17/21 02:22 SARS-CoV-2 (PCR) Not detected (NOT DETECT) 12/17/21 02:22 Discharge Plan Discharge Patient Disposition: Home Clinical Impression: Near syncope Condition: Stable Prescriptions: New alprazolam 1 mg tablet 1 mg PO BID PRN (Reason: shaking) Qty: 14 0RF No Action prednisone 20 mg tablet 20 mg PO TID Qty: 15 0RF Rx Instructions: 1 p.o. 3 times daily x3 days, 1 p.o. twice daily x2 days, 1 p.o. daily x2 days Discharge Orders: Discharge ED (Routine); Ordered 12/17/21 Ordered By: Fabrice Em Discharge Diet: Advance as tolerated Discharge Activity: Resume usual activity Patient Instructions: Near Syncope (ED), Tremors (ED) Coding Level of Care Code ED Senior Marketing Associate for [employer] Fwd Exam Comprehensive
[2021-12-17 04:18] VITALS: BP 110/64; PULSE 76; RESP 16; O2SAT 95
[2021-12-17 04:22] LABS: Adenovirus Not Detected (NOT DETECT); Chlamydia Pneumoniae Not Detected (NOT DETECT); Coronavirus 229E,HKU1,NL63,OC4 Not Detected (NOT DETECT); Human Metapneumovirus Not Detected (NOT DETECT); Human Rhinovirus/Enterovirus Not Detected (NOT DETECT); Influenza A Not Detected (NOT DETECT); Influenza A H1 Not Detected (NOT DETECT); Influenza A H1-2009 Not Detected (NOT DETECT); Influenza A H3 Not Detected (NOT DETECT); Influenza B Not Detected (NOT DETECT); Mycoplasma Pneumoniae Not Detected (NOT DETECT); Parainfluenza Virus Type 1 Not Detected (NOT DETECT); Parainfluenza Virus Type 2 Not Detected (NOT DETECT); Parainfluenza Virus Type 3 Not Detected (NOT DETECT); Parainfluenza Virus Type 4 Not Detected (NOT DETECT); Respiratory Syncytial Virus A Not Detected (NOT DETECT); Respiratory Syncytial Virus B Not Detected (NOT DETECT); SARS-COV-2 Not Detected (NOT DETECT)
[2021-12-17] MEDS: iohexol 350 mg/mL 100 mL Btl IV (05:20)
[2021-12-17 05:54] VITALS: BP 100/51; PULSE 68; RESP 13; O2SAT 94
--- NOTE | 2021-12-18 08:14 | DCPLANNER ---
Addendum entered by Mercedes Jones 01/12/22 07:36: clerical manager received the following message from the neurology clinic regarding follow up appointment: Spoke to pt and he cancelled this appointment he will be out of town and not sure when he will be back so he will call us when he comes back. Original Note: clerical manager had message to schedule a follow up appointment for patient with neurology. clerical manager sent patients information to the front office staff at neurology. Patients information will be printed and reviewed. Clinic will call patient with appointment information. clerical manager also faxed a signed order for an EEG to neurology. Clinic will call patient with appointment information.
== END 2021-12-17 05:55 | disposition home or self-care (01) ==
PROVIDERS: Emergency Provider Emergency Medicine
DX: R55 Syncope and collapse (principal); Z20.822 Contact with and (suspected) exposure to COVID-19
CPT/HCPCS: 70450; 71045; 71275; 74177; 80053; 81003; 82550; 83605; 83735; 84100; 84145; 84484; 85025; 85378; 86140; 87635; 93005; 96374; 99285; J2250; J7030; Q9967

== ENCOUNTER 2023-06-17 23:05 | Emergency (ER) | payer OTHER, SELFPAY ==
[2023-06-17 23:09] VITALS: BP 163/90; PULSE 84; RESP 14; TEMP 36.6; O2SAT 98
--- NOTE | 2023-06-18 00:09 | CTR_ITS ---
PROCEDURE INFORMATION: Exam: CT Abdomen And Pelvis With Contrast Exam date and time: 06/18/2023 1:06 AM Age: 43 years old Clinical indication: Abdominal pain and other: Pelvic; Additional info: Deep pelvic pain HX of chronic prostatis TECHNIQUE: Imaging protocol: Computed tomography of the abdomen and pelvis with contrast. Radiation optimization: All CT scans at this facility use at least one of these dose optimization techniques: automated exposure control; mA and/or kV adjustment per patient size (includes targeted exams where dose is matched to clinical indication); or iterative reconstruction. Contrast material: OMNI 350; Contrast volume: 100 ml; Contrast route: INTRAVENOUS (IV); COMPARISON: CT angio chest w abd pel w con 12/17/2021 3:44 AM RADIATION DOSE METRICS: Total DLP (mGy-cm): 559.4 FINDINGS: Lungs: Bibasilar atelectasis versus infiltrate. Liver: Normal. No mass. Gallbladder and bile ducts: Normal. No calcified stones. No ductal dilation. Pancreas: Normal. No ductal dilation. Spleen: Normal. No splenomegaly. Adrenal glands: Normal. No mass. Kidneys and ureters: Right kidney cyst, negative for follow-up advised. Stomach and bowel: Moderate constipation. Appendix: No evidence of appendicitis. Intraperitoneal space: Unremarkable. No free air. No significant fluid collection. Vasculature: Unremarkable. No abdominal aortic aneurysm. Lymph nodes: Unremarkable. No enlarged lymph nodes. Urinary bladder: Unremarkable as visualized. Reproductive: Prostate gland somewhat prominent, please correlate clinically. Bones/joints: Unremarkable. No acute fracture. Soft tissues: Small umbilical hernia containing omentum without bowel. CT/CT abdomen pelvis w con* [id number] IMPRESSION: 1. Negative for focal acute inflammatory process in the abdomen or pelvis. 2. Bibasilar atelectasis versus infiltrate. 3. Moderate constipation. 4. Right kidney cyst, negative for follow-up advised. 5. Prostate gland somewhat prominent, please correlate clinically. 6. Small umbilical hernia containing omentum without bowel.
[2023-06-18 00:14] LABS: Add Urine Microscopic? NO; Charge for UA Resulting for Rev
[2023-06-18 00:16] LABS: Bilirubin Urine Neg (Negative); Blood Urine Neg (Negative); Glucose Urine UA Norm (Normal); Ketones Urine Negative (Negative); Leukocyte Esterase Urine Negative (Negative); Nitrate Urine Negative (Negative); Protein Urine Neg (Negative); Specific Gravity, Urine 1.015 (1.005-1.030); Urine Appearance Clear (CLEAR); Urine Color Light yellow (Yellow); Urobilinogen Urine Neg (Negative); pH Urine 6 (5-7)
[2023-06-18 00:21] VITALS: BP 126/82; PULSE 86; RESP 16; O2SAT 95
--- NOTE | 2023-06-18 00:22 | ED_ITS ---
HPI - Male Genitourinary 2 General: Chief complaint: Urogenital-Male Stated complaint: Pain In Bladder and Prostate Time Seen by Provider: 06/17/23 23:51 History of Present Illness: Patient presents to the ER complaining of prostate pain burning and bladder spasms. Patient saw the urgent care doc over a week ago and was put on Cipro and finished 7 days of it. With no relief. The patient saw the urologist within the last week and they said his urine was clean. Patient has a history of chronic prostatitis that flares up about once a year ever since he is approximately 19 years old. Patient did find an old bottle of doxycycline that he had at home last night and has taken 3 doses and the pain has improved. Patient denies any problems with urinating or defecating. Review of Systems 2 General: Reports: 10 or more systems reviewed and unremarkable except in HPI and below PFSH ED 2 PFSH: Medical History No pertinent family history Surgical History No pertinent past surgical history Physical Exam 2 Const: COMMON NORMALS: no acute distress, average body habitus, patient oriented x3, no limitations, healthy appearing, alert and well nourished Neck/C-Spine: COMMON NORMALS: no JVD Chest: COMMONS NORMALS: normal inspection of the chest and normal palpation of entire chest wall Resp: COMMON NORMALS: normal respiratory effort, No retractions, No use of accessory muscles and clear to auscultation bilaterally AUSCULTATION: clear to auscultation bilaterally Cardio: COMMON NORMALS: no JVD, regular rate, regular rhythm, S1 normal heart sound present, S2 normal heart sound present, No gallops present (Cardio), No clicks present (Cardio), No murmurs present (Cardio) and No rub (Cardio) R ATE: regular rate RHYTHM: regular rhythm HEART SOUNDS: S1 normal heart sound present and S2 normal heart sound present GI: COMMON NORMALS: Normal to inspection, nondistended, normoactive bowel sounds present, Soft to palpation, non-tender, No hepatosplenomegaly present and no masses PALPATION: Yes Soft to palpation and Yes No hepatosplenomegaly present : OTHER: Patient declined rectal/prostate exam. Neuro: COMMON NORMALS: patient oriented x3 SENSORIUM/ORIENTATION: Yes alert Course 2 Vital Signs: Vital signs: Vital Signs Temperature 97.8 F 06/18/23 01:57 Pulse Rate 74 06/18/23 01:57 Respiratory Rate 16 06/18/23 01:57 Blood Pressure 118/76 06/18/23 01:57 Pulse Oximetry 99 06/18/23 01:57 Oxygen Delivery Me thod Room Air 06/18/23 01:37 MDM - Male Medical Decision Making Patient presented what he said was chronic prostatitis is worsened. Patient declined to prostate exam. We did get lab work that included CBC CMP PSA and urine all of which was essentially benign. Also got a contrasted scan of the abdomen pelvis which showed prostate gland somewhat prominent otherwise unremarkable. Patient be placed on doxycycline for 3 weeks. Patient should follow-up with his urologist as needed. Differential Diagnosis Likely prostatitis; Unlikely urinary tract infection, priapism, urethritis, epididymitis, genital herpes simplex, acute retention of urine or inguinal hernia Medical Records I reviewed the patient's medical records. Lab Data I reviewed the patient's lab results. 06/18/23 00:24 06/18/23 00:24 Radiology Impressions Abdomen/Pelvis CT 06/18/23 00:09 IMPRESSION: 1. Negative for focal acute inflammatory process in the abdomen or pelvis. 2. Bibasilar atelectasis versus infiltrate. 3. Moderate constipation. 4. Right kidney cyst, negative for follow-up advised. 5. Prostate gland somewhat prominent, please correlate clinically. 6. Small umbilical hernia containing omentum without bowel. Laboratory Results WBC 6.51 10^3/uL (3.29-11.43) 06/18/23 00:24 RBC 4.13 10^6/uL (3.85-5.65) 06/18/23 00:24 Hgb 12.80 g/dL (11.27-16.99) 06/18/23 00:24 Hct 37.5 % (37-53) 06/18/23 00:24 MCV 90.8 fl (82-101) 06/18/23 00:24 MCH 31.0 pg (27-33) 06/18/23 00:24 MCHC 34.1 g/dL (30-55) 06/18/23 00:24 RDW 12.3 % (12.1-15.1) 06/18/23 00:24 Plt Count 256 10^3/cmm (157-399) 06/18/23 00:24 MPV 8.4 fL (7.4-10.4) 06/18/23 00:24 Neut % (Auto) 67.9 % 06/18/23 00:24 Lymph % (Auto) 20.4 % 06/18/23 00:24 [place] % (Auto) 8.8 % 06/18/23 00:24 Eos % (Auto) 1.7 % 06/18/23 00:24 Baso % (Auto) 0.9 % 06/18/23 00:24 Neut # (Auto) 4.42 10^3/uL (1.8-7.7) 06/18/23 00:24 Lymph # (Auto) 1.3 10^3/uL (0.8-4.8) 06/18/23 00:24 [place] # (Auto) 0.6 10^3/uL (0.2-0.9) 06/18/23 00:24 Eos # (Auto) 0.1 10^3/uL (0.0-0.8) 06/18/23 00:24 Baso # (Auto) 0.1 10^3/uL (0.0-0.1) 06/18/23 00:24 Nucleated RBC % (auto) 0 % 06/18/23 00: Nucleated RBCs # 0.0 /100WBC 06/18/23 00:24 Sodium 141 mmol/L (136-145) 06/18/23 00:24 Potassium 4.2 mmol/L (3.5-5.1) 06/18/23 00:24 Chloride 107 mmol/L (98-107) 06/18/23 00:24 Carbon Dioxide 25 mmol/L (22-29) 06/18/23 00:24 Anion Gap 13.2 (5-19) 06/18/23 00:24 BUN 22 mg/dL (6-20) H 06/18/23 00:24 Creatinine 0.7 mg/dL (0.7-1.2) 06/18/23 00:24 GFR Calculation 122.5 mL/min (90-130) 06/18/23 00:24 Glucose 110 mg/dL (65-115) 06/18/23 00:24 Calculated Osmolality 296 mOsm/kg (285-295) H 06/18/23 00:24 Calcium 8.8 mg/dL (8.5-10.5) 06/18/23 00:24 Total Bilirubin 0.7 mg/dL (0.15-1.2) 06/18/23 00:24 AST 18 U/L (0-40) 06/18/23 00:24 ALT 27 U/L (0-41) 06/18/23 00:24 Alkaline Phosphatase 53 U/L (40-130) 06/18/23 00:24 C-Reactive Protein 3.0 mg/L (0.0-4.9) 06/18/23 00:24 Total Protein 6.5 g/dL (6.6-8.7) L 06/18/23 00:24 Albumin 4.2 g/dL (3.5-5.2) 06/18/23 00:24 Globulin 2.3 g/dL (1.3-4.6) 06/18/23 00:24 Prostate Specific Ag 0.619 ng/mL (0-4) 06/18/23 00:24 Urine Color Light yellow (Yellow) 06/18/23 00:01 Urine Appearance Clear (CLEAR) 06/18/23 00:01 Urine pH 6 (5-7) 06/18/23 00:01 Ur Specific [place] 1.015 (1.005-1.030) 06/18/23 00:01 Urine Protein Neg (Negative) 06/18/23 00:01 Urine Glucose (UA) Norm (Normal) 06/18/23 00:01 Urine Ketones Negative (Negative) 06/18/23 00:01 Urine Blood Neg (Negative) 06/18/23 00:01 Urine Nitrate Negative (Negative) 06/18/23 00:01 Urine Bilirubin Neg (Negative) 06/18/23 00:01 Urine Urobilinogen Neg mg/dL (Negative) 06/18/23 00:01 Ur Leukocyte Esterase Negative (Negative) 06/18/23 00:01 All radiology interpretation(s) finalized by discharge Discharge Plan Discharge Patient Disposition: Home Clinical Impression: Prostatitis Qualifiers: Prostatitis type: other Qualified Code(s): N41.8 - Other inflammatory diseases of prostate Condition: Stable Prescriptions: New doxycycline hyclate 100 mg capsule 100 mg PO Q12H 21 Days Qty: 42 0RF No Action prednisone 20 mg tablet 20 mg PO TID Qty: 15 0RF Rx Instructions: 1 p.o. 3 times daily x3 days, 1 p.o. twice daily x2 days, 1 p.o. daily x2 days alprazolam 1 mg tablet 1 mg PO BID PRN (Reason: shaking) Qty: 14 0RF Discharge Orders: Discharge ED (Routine); Ordered 06/18/23 Ordered By: Tyrone Fink Referrals: Emerson Villanueva DO [Primary Care Provider] - 1 week Patient Instructions: Prostatitis (ED) Activity Restrictions/Additional Instructions: Please take all your antibiotics as directed. Please follow-up with your urologist on an as-needed basis. Coding Level of Care Code ED [employer] [facility]
[2023-06-18 00:29] LABS: Basophils # 0.1 10^3/uL (0.0-0.1); Basophils % 0.9 %; Eosinophils # 0.1 10^3/uL (0.0-0.8); Eosinophils % 1.7 %; Hematocrit 37.5 % (37-53); Lymphocytes # 1.3 10^3/uL (0.8-4.8); Lymphocytes % 20.4 %; Mean Corpuscular HGB Conc 34.1 g/dL (30-55); Mean Corpuscular Volume 90.8 fl (82-101); Mean Platelet Volume 8.4 fL (7.4-10.4); Monocytes # 0.6 10^3/uL (0.2-0.9); Monocytes % 8.8 %; Neutrophils # 4.42 10^3/uL (1.8-7.7); Neutrophils % 67.9 %; Nucleated Red Blood Cells % 0 %; Platelet Count 256 10^3/cmm (157-399); Red Blood Count 4.13 10^6/uL (3.85-5.65); Red Cell Distribution Width 12.3 % (12.1-15.1); White Blood Count 6.51 10^3/uL (3.29-11.43)
[2023-06-18] MEDS: ketorolac 30 mg/mL INJ IVP (00:30)
[2023-06-18 00:32] VITALS: BP 118/71; PULSE 74; RESP 16; O2SAT 94
[2023-06-18 00:58] LABS: Alanine Aminotransferase 27 U/L (0-41); Albumin Level 4.2 g/dL (3.5-5.2); Alkaline Phosphatase 53 U/L (40-130); Anion Gap 13.2 (5-19); Aspartate Amino Transferase 18 U/L (0-40); Blood Urea Nitrogen 22 mg/dL (6-20); Calcium 8.8 mg/dL (8.5-10.5); Carbon Dioxide 25 mmol/L (22-29); Chloride 107 mmol/L (98-107); Globulin 2.3 g/dL (1.3-4.6); Glomerular Filtration Rate 122.5 mL/min (90-130); Glucose 110 mg/dL (65-115); Osmolality Calculated 296 mOsm/kg (285-295); Potassium 4.2 mmol/L (3.5-5.1); Prostate Specific Antigen 0.619 ng/mL (0-4); Sodium 141 mmol/L (136-145); Total Bilirubin 0.7 mg/dL (0.15-1.2); Total Protein 6.5 g/dL (6.6-8.7)
[2023-06-18] MEDS: iohexol 350 mg/mL 500 mL Btl (per mL) IV (01:10)
[2023-06-18 01:37] VITALS: BP 118/76; PULSE 74; O2SAT 99
[2023-06-18 01:57] VITALS: BP 118/76; PULSE 74; RESP 16; TEMP 36.6; O2SAT 99
== END 2023-06-18 01:59 | disposition home or self-care (01) ==
PROVIDERS: Emergency Provider Emergency Medicine; PCP Electrodiagnostic Medicine
DX: N41.8 Other inflammatory diseases of prostate (principal)
CPT/HCPCS: 74177; 80053; 81003; 84153; 85025; 86140; 96374; 99285; J1885; Q9967

== ENCOUNTER → 2023-09-16 10:47 | Outpatient (BNVA) | payer OTHER, SELFPAY | PROVIDERS: PCP Electrodiagnostic Medicine; Visit Provider Registered Nurse Neonatal Intensive Care | DX: S69.92XA Unspecified injury of left wrist, hand and finger(s), initial encounter (principal); X58.XXXA Exposure to other specified factors, initial encounter | CPT/HCPCS: 73130 ==